=== PATIENT | male | born 1980 | race Caucasian/White ===

== ENCOUNTER 2024-08-18 13:41 | Emergency (ER) | payer OTHER ==
[~2024-08-18] VITALS: Ht 170.2 cm; Wt 131.8 kg
[2024-08-18 13:50] VITALS: TEMP 98.2
[2024-08-18 14:10] LABS: GLUCOMETER DEV NAME(LOC) ER.7; GLUCOSE,POINT OF CARE 301 MG/DL (70-110)
[2024-08-18] MEDS ORDERED: METF-1211 PO (15:27)
[2024-08-18 15:47] VITALS: BP 145/95; PULSE 89; RESP 19; O2SAT 95
== END 2024-08-18 15:48 | disposition home or self-care (01) ==
LOC: EMS 13:41
DX: E11.65 Type 2 diabetes mellitus with hyperglycemia (principal); Z79.899 Other long term (current) drug therapy
CPT/HCPCS: 82962; 99283